=== PATIENT | male | born 1960 | race Caucasian/White ===

== ENCOUNTER 2016-09-02 23:25 | Emergency (ER) | payer OTHER ==
[2016-09-03 00:03] VITALS: BP 115/77; PULSE 105; RESP 20; TEMP 99.1; O2SAT 98
[2016-09-03] MEDS ORDERED: ALPR0.25 PO (00:15)
[2016-09-03] MEDS ORDERED: METF500T PO (00:15)
[2016-09-03] MEDS ORDERED: BUME1TAB26 PO (00:15)
[2016-09-03] MEDS ORDERED: CYCL5TAB PO (00:15)
[2016-09-03] MEDS ORDERED: POTA-243 PO (00:15)
[2016-09-03] MEDS ORDERED: SUCR1TAB PO (00:15)
[2016-09-03] MEDS ORDERED: ENAL5TAB PO (00:15)
[2016-09-03] MEDS ORDERED: TEMA15CA PO (00:15)
[2016-09-03] MEDS ORDERED: FURO1TAB60 PO (00:15)
[2016-09-03] MEDS ORDERED: CARV12.52 PO (00:15)
[2016-09-03] MEDS ORDERED: PANT40TA3 PO (00:15)
[2016-09-03] MEDS ORDERED: ASPI81CH CHEW (00:15)
[2016-09-03 00:22] VITALS: RESP 20; O2SAT 97
[2016-09-03 00:41] LABS: AUTOMATED NEUTROPHIL # 3.6 TH/MM3 (1.8-7.7); BASOPHIL % 0.9 % (0.0-2.0); EOSINOPHIL # 0.1 TH/MM3 (0-0.4); EOSINOPHIL % 2.9 % (0.0-4.0); HEMATOCRIT 36.9 % (39.0-51.0); HEMO FLAGS DIFF FINAL; LYMPH % 15.6 % (9.0-44.0); LYMPHOCYTE # 0.8 TH/MM3 (1.0-4.8); MEAN CELL VOLUME 87.9 FL (80.0-100.0); MONO % 6.7 % (0.0-8.0); NEUT % 73.9 % (16.0-70.0); PLATELET COUNT 218 TH/MM3 (150-450); RED CELL DISTRIBUTION WIDTH 16.8 % (11.6-17.2); WHITE BLOOD COUNT 4.9 TH/MM3 (4.0-11.0)
[2016-09-03 00:56] LABS: BICARBONATE 28.4 MEQ/L (21.0-32.0)
--- NOTE | 2016-09-03 00:57 | PD ---
HPI Chief Complaint: Respiratory Symptoms Time Seen by Provider: 00:03 Travel History International Travel<30 days: No Contact w/Intl Traveler<30days: No Traveled to known affect area: No History of Present Illness HPI Patient is a 56-year-old male with history of aortic coarctation status post repair, CHF with EF of approximately 25%, status post AICD here with complaint of shortness of breath. Patient is here vacationing for bike week. States that he has become increasingly short of breath with lower extremity edema over the course the last several days. He has been compliant with his diuretics. He notes some crackles, wheezing audibly. Patient is concern for CHF exacerbation. He has not had any chest pain. No cough, fevers. PFSH Past Medical History Hx Anticoagulant Therapy: Yes Anxiety: Yes Depression: Yes Heart Rhythm Problems: Yes (pacemaker) Cardiac Catheterization: Yes Cardiovascular Problems: Yes High Cholesterol: Yes Chest Pain: Yes Cerebrovascular Accident: Yes Coronary Artery Disease: Yes Diabetes: Yes Patient Takes Glucophage: Yes Diminished Hearing: No GERD: Yes Past Surgical History Body Medical Devices: pacer difibrillator Coronary Artery Bypass Graft: Yes (coartation of the aorta) Pacemaker: Yes Social History Alcohol Use: No Tobacco Use: No Substance Use: No Allergies-Medications (Allergen,Severity, Reaction): Coded Allergies: Penicillin (Verified Allergy, Severe, 09/03/16) Reported Meds & Prescriptions Reported Meds & Active Scripts Active Reported Alprazolam 0.25 Mg Tab 0.25 Mg PO Q4H PRN Flexeril (Cyclobenzaprine HCl) 5 Mg Tab 5 Mg PO DIRECTED Temazepam 15 Mg Cap 15 Mg PO HS PRN Enalapril (Enalapril Maleate) 5 Mg Tab 5 Mg PO DAILY Klor-Con 10 (Potassium Chloride) 10 Meq Tab 10 Meq PO DAILY Sucralfate 1 Gm Tab 1 Gm PO DIRECTED on empty stomach Pantoprazole (Pantoprazole Sodium) 40 Mg Tab 40 Mg PO DAILY Carvedilol 12.5 Mg Tab 12.5 Mg PO BID Bumex (Bumetanide) 1 Mg Tab 1 Mg PO DIRECTED Aspirin 81 Mg Chew 81 Mg CHEW DAILY Lasix (Furosemide) 40 Mg Tab 40 Mg PO BID Metformin (Metformin HCl) 500 Mg Tab 500 Mg PO BIDPC With meals Review of Systems Except as stated in HPI: all other systems reviewed are Neg Physical Exam Narrative GENERAL: Well Appearing male in no acute distress SKIN: Warm and dry. HEAD: Normocephalic. EYES: No scleral icterus. No injection or drainage. ENT: Mucous membranes pink and moist. NECK: Supple CARDIOVASCULAR: Borderline tachycardia with heart rate in the 90s to 100 100s, intermittently paced rhythm. No murmur appreciated. AICD left upper chest wall RESPIRATORY: No accessory muscle use. Crackles in bilateral bases with occasional wheeze GASTROINTESTINAL: Abdomen soft, non-tender, nondistended. MUSCULOSKELETAL: No obvious deformities. 2+ edema. NEUROLOGICAL: Awake and alert. Motor grossly within normal limits. Normal speech. PSYCHIATRIC: Appropriate mood and affect; insight and judgment normal. Data Data Last Documented VS Vital Signs Date Time Temp Pulse Resp B/P Pulse Ox O2 Delivery O2 Flow Rate FiO2 09/03/16 01:18 103 20 111/73 100 Nasal Cannula 2 09/03/16 00:03 99.1 Orders Complete Blood Count With Diff (09/03/16 00:03) Basic Metabolic Panel (Bmp) (09/03/16 00:03) B-Type Natriuretic Peptide (09/03/16 00:03) Act Partial Throm Time (Ptt) (09/03/16 00:03) Prothrombin Time / Inr (Pt) (09/03/16 00:03) Troponin I (09/03/16 00:03) Iv Access Insert/Monitor (09/03/16 00:03) Electrocardiogram (09/03/16 00:03) Ecg Monitoring (09/03/16 00:03) Oximetry (09/03/16 00:03) Chest, Single Ap (09/03/16 00:03) Potassium Chloride (Kcl) (09/03/16 01:15) Furosemide Inj (Lasix Inj) (09/03/16 01:45) Labs Laboratory Tests Test 09/03/16 00:30 White Blood Count 4.9 TH/MM3 Red Blood Count 4.20 MIL/MM3 Hemoglobin 12.2 GM/DL Hematocrit 36.9 % Mean Corpuscular Volume 87.9 FL Mean Corpuscular Hemoglobin 29.0 PG Mean Corpuscular Hemoglobin 33.0 % Concent Red Cell Distribution Width 16.8 % Platelet Count 218 TH/MM3 Mean Platelet Volume 7.6 FL Neutrophils (%) (Auto) 73.9 % Lymphocytes (%) (Auto) 15.6 % Monocytes (%) (Auto) 6.7 % Eosinophils (%) (Auto) 2.9 % Basophils (%) (Auto) 0.9 % Neutrophils # (Auto) 3.6 TH/MM3 Lymphocytes # (Auto) 0.8 TH/MM3 Monocytes # (Auto) 0.3 TH/MM3 Eosinophils # (Auto) 0.1 TH/MM3 Basophils # (Auto) 0.0 TH/MM3 CBC Comment DIFF FINAL Differential Comment Prothrombin Time 12.5 SEC Prothromb Time International 1.1 RATIO Ratio Activated Partial 29.3 SEC Thromboplast Time Sodium Level 138 MEQ/L Potassium Level 3.0 MEQ/L Chloride Level 100 MEQ/L Carbon Dioxide Level 28.4 MEQ/L Anion Gap 10 MEQ/L Blood Urea Nitrogen 18 MG/DL Creatinine 0.97 MG/DL Estimat Glomerular Filtration 80 ML/MIN Rate Random Glucose 207 MG/DL Calcium Level 8.1 MG/DL Troponin I 0.02 NG/ML B-Type Natriuretic Peptide 1605 PG/ML MDM Medical Decision Making Medical Screen Exam Complete: Yes Emergency Medical Condition: Yes Medical Record Reviewed: Yes Differential Diagnosis 56 her old male with history of aortic heart dictation, CHF EF 25%, status post AICD here with several days of increasing shortness of breath, lower extremity edema despite being reportedly compliant with diuretic. Differential includes CHF exacerbation, arrhythmia, symptomatic anemia, electrolyte abnormality, pneumonia, volume overload. Narrative Course Patient placed on monitor, IV established and blood obtained. A twelve-lead EKG shows paced rhythm with occasional PVCs. Portable chest x-ray obtained and by my read shows cardiomegaly, but no evidence of pulmonary vascular congestion , pleural effusion.. CBC, BMP, coags, BNP, troponin and notable for BNP . Patient given 80 mg Lasix IV. Patient feels improved, was able to urinate over a liter after Lasix and is requesting be discharged home. Will follow up with his claims clerk in [place], on Sunday. Diagnosis Primary Impression: CHF exacerbation Qualified Code: I50.23 - Acute on chronic systolic congestive heart failure Additional Impression: Shortness of breath Referrals: [facility] Tech 2 days Additional Instructions: Continue home diuretics as prescribed. Follow up with claims clerk on Sunday as discussed and return to the ER for the warning signs discussed. Med/Other Pt SpecificInfo: No Change to Meds Disposition: 01 DISCHARGE HOME Condition: Stable Lluvia Swan MD Sep 03, 2016 00:57
--- NOTE | 2016-09-03 01:08 | RADRPT ---
EXAM DATE/TIME: 09/03/2016 00:45 [facility] COMPARISON: No previous studies available for comparison. INDICATIONS : Shortness of breath. MEDICAL HISTORY : Coronary artery disease. SURGICAL HISTORY : Pacemaker. Cardiac catheterization. ENCOUNTER: Initial ACUITY: 1 day PAIN SCORE: 0/10 LOCATION: Bilateral chest FINDINGS: Cardiomegaly present with pacer leads in right atrium, right ventricle and coronary sinus. No focal c onsolidation or effusion. No pneumothorax. CONCLUSION: 1. Cardiomegaly. No focal infiltrate or effusion. Pacer leads in right atrium and right ventricle and coronary sinus. Rigoberto Hawthorne MD on September 03, 2016 at 1:06 Board Certified Radiologist. This report was verified electronically.
[2016-09-03] MEDS ORDERED: POTASSIUM CHLORIDE 20 MEQ CONTROLLED RELEASE TAB PO ONE (01:15)
[2016-09-03 01:18] VITALS: BP 111/73; PULSE 103; RESP 20; O2SAT 100
[2016-09-03 01:19] LABS: APTT (PATIENT) 29.3 SEC (24.3-30.1); INTERNATIONAL NORMALIZED RATIO 1.1 RATIO; PROTHROMBIN TIME - PATIENT 12.5 SEC (9.8-11.6)
[2016-09-03] MEDS ORDERED: FUROSEMIDE 100 MG/10 ML VIAL IV PUSH ONE (01:45)
--- NOTE | 2016-09-03 12:31 | EKG ---
Date Performed: 09/03/2016 Time Performed: 00:38:13 PTAGE: 56 years EKG: Baseline artifact is present. Probable sinus tachycardia with premature ventricular contrac tions. MARKED LEFT AXIS DEVIATION LEFT BUNDLE BRANCH BLOCK ABNORMAL ECG NO PREVIOUS TRACING DOCTOR: Nir Ng Interpretating Date/Time 09/03/2016 12:30:22
== END 2016-09-03 03:28 | disposition home or self-care (01) ==
LOC: NEPE 23:25
DX: I50.23 Acute on chronic systolic (congestive) heart failure (principal); R06.02 Shortness of breath; R60.0 Localized edema; I44.7 Left bundle-branch block, unspecified; Q25.1 Coarctation of aorta; Z95.810 Presence of automatic (implantable) cardiac defibrillator; E78.00 Pure hypercholesterolemia, unspecified; E11.9 Type 2 diabetes mellitus without complications; I25.10 Atherosclerotic heart disease of native coronary artery without angina pectoris; Z79.01 Long term (current) use of anticoagulants; Z86.73 Personal history of transient ischemic attack (TIA), and cerebral infarction without residual deficits; Z95.0 Presence of cardiac pacemaker
CPT/HCPCS: 71010; 80048; 83880; 84484; 85025; 85610; 85730; 93005; 96374; 99285; J1940